=== PATIENT | female | born 1960 | race Caucasian/White ===

== ENCOUNTER 2018-09-03 06:49 | Observation (INO) | payer SELFPAY ==
[2018-09-03] VITALS (20 sets, daily range): BP systolic 133–178; BP diastolic 66–102; PULSE 56–74; RESP 10–20; TEMP 36.3–37.1; O2SAT 93–100; BMI 39.6
--- NOTE | 2018-09-03 | PATH_ITS ---
[facility] Accession Number: [id number] . 01 Material submitted: . gallbladder - GALLBLADDER . 02 Diagnosis: Gallbladder: Cholelithiasis with associated chronic cholecystitis. Benign reactive lymph node. I/09/07/2018 . 02 Electronically signed: . Bay Amador MD, Pathologist NPI- [id number] . 01 Gross description: . Received in formalin, labeled gallbladder, is an intact gallbladder (length-10.2 cm, diameter-3.5 cm) with patton-pink smooth shiny serosa and a patent cystic duct. A lymph node (1.5 x 0.7 x 0.5 cm) is identified. The lumen contains brown-green watery bile and multiple leary solid multifaceted calculi (10.0 x 3.5 x 2.0 cm in aggregate). The mucosa is leary smooth and flat. The wall is up to 0.1 cm thick. No nodules, masses or lesions are identified. Section code: (A1) cystic duct resection margins and two serial sections from the body; (A2) two longitudinal sections from the fundus; (A3) one bisected lymph node. ([id number]) /MRV . 02 Pathologist provided ICD-10: K80.64 . 02 CPT . 001982 Performed at: [address] [facility] [address] [place] [address], [place], [place] [id number] MD Rehan Mckeon MD Phone: [phone] Performed at: 02 [facility] [place] [address] [place], [place] [id number] MD Caroline Rod MD Phone: [phone]
--- NOTE | 2018-09-03 07:38 | DI.RAD.S_ITS ---
PROCEDURE: XR CHEST 1V INDICATIONS: chest pain TECHNIQUE: One view of the chest was acquired. COMPARISON: None. FINDINGS: Surgical changes and devices: None. Lungs and pleura: Lungs are clear. No pleural effusions or pneumothorax. Mediastinum: Mediastinal contours appear normal. Heart size is normal. Bones and chest wall: No suspicious bony lesions. Overlying soft tissues appear unremarkable. IMPRESSION: Normal for age, source of current chest pain symptoms is not seen. Dictated by: Lul Slater M.D. on 09/03/2018 at 8:13 Approved by: Lul Slater M.D. on 09/03/2018 at 8:13
--- NOTE | 2018-09-03 07:48 | DI.US.S_ITS ---
PROCEDURE: US ABDOMEN COMPLETE INDICATIONS: RIGHT UPPER QUADRANT PAIN TECHNIQUE: Real-time scanning was performed of the abdominal and retroperitoneal organs, with image documentation. COMPARISON: [facility], CR, XR CHEST 1V, 09/03/2018, 7:53. FINDINGS: Liver: Liver is normal in size and homogeneous in echotexture. Gallbladder: Numerous nonobstructing kidney stones are seen. The LLL is thickened to 3.3 mm. No specific pericholecystic fluid is seen. The sonographic Quinn sign is positive. Biliary ducts: Intrahepatic bile ducts are non-dilated. Extrahepatic bile duct caliber measures 5 mm. Normal is 6-7 mm or less in diameter, or 10 mm or less post-cholecystectomy. Pancreas: Not seen. Spleen: Spleen is normal in size and homogeneous in echotexture. Kidneys: Kidneys are normal in size and echotexture. Right kidney measures 11.3 cm long; left kidney measures 10.1 cm long. No hydronephrosis or nephrolithiasis. No solid masses. The renal cortex measures within normal limits for thickness. Aorta: Visualized aorta is normal in caliber at less than 3 cm. Iliacs: Proximal common iliac arteries are normal in caliber at less than 2.5 cm. IVC: Intrahepatic inferior vena cava is patent. Miscellaneous: No free abdominal fluid. This study is limited by body habitus. IMPRESSION: Abnormal gallbladder, with numerous gallstones, a thickened gallbladder wall, and a positive sonographic Quinn sign. These findings are worrisome for acute cholecystitis. Please correlate with physical examination findings, patient presentation, and laboratory values. There is no biliary dilatation. Dictated by: Stan Tobias M.D. on 09/03/2018 at 7:45 Approved by: Stan Tobias M.D. on 09/03/2018 at 7:47
--- NOTE | 2018-09-03 07:53 | ED_ITS ---
HPI - Chest Pain General Chief Complaint: Chest Pain Stated Complaint: nausea/chest and back pain x2 days Time Seen by Provider: 09/03/18 06:51 Source: patient Mode of arrival: ambulatory Limitations: no limitations History of Present Illness HPI narrative: Patient is a 57-year-old female who has not been feeling well for a few days. She is complaining today of right scapular pain, chest pain, vomiting. She said it actually started with some nonbloody diarrhea which has now resolved. She says the pain is in her right scapular region radiating around to her stomach or from stomach radiating around to her back she can't tell. She has thrown up 6 times yesterday 4 times this morning. No fever. She does have some mild chest pain as well no shortness of breath. her chest pain is nonradiating. Related Data Home Medications Medication Instructions Recorded Confirmed No Known Home Medications 12/03/17 09/03/18 Allergies Allergy/AdvReac Type Severity Reaction Status Date / Time No Known Drug Allergies Allergy Verified 09/03/18 13:27 Review of Systems Review of Systems ROS Unobtainable: All systems reviewed & are unremarkable except as noted in HPI and below Constitutional Denies chills, Denies fever(s), Denies lethargy and Denies weakness Eyes Denies change in vision, Denies eye discharge, Denies irritation and Denies loss of vision Cardiovascular Reports chest pain, Denies syncope, Denies rapid heart rate, Denies pedal edema, Denies irregular heart rhythm, Denies dyspnea and Denies dyspnea on exertion Respiratory Denies cough, Denies dyspnea, Denies dyspnea on exertion and Denies wheezing Gastrointestinal Gastrointestinal: Reports as per HPI, Reports diarrhea, Reports nausea and Reports vomiting Genitourinary Denies hematuria, Denies flank pain, Denies urinary incontinence and Denies urinary urgency Musculoskeletal Reports as per HPI and Reports back pain (Right scapular pain) Integumentary/Breasts Denies pruritus, Denies erythema, Denies rash and Denies wounds Neurologic Denies syncope, Denies loss of vision and Denies weakness Allergic/Immunologic Denies wheezing [facility] Medical History Chronic back pain (Chronic ~2011) Knee pain (Chronic ~2011) Chicken pox (Resolved ~1963) Family History Father Cancer Mother Cancer Brother Diabetes mellitus Drug abuse Brother No problems noted. Brother No problems noted. Brother No problems noted. Grandfather No problems noted. Grandfather No problems noted. Social History Smoking Status: Never smoker Family History Father Cancer Mother Cancer Brother Diabetes mellitus Drug abuse Brother No problems noted. Brother No problems noted. Brother No problems noted. Grandfather No problems noted. Grandfather No problems noted. Social History household members: spouse Smoking Status: Never smoker Exam Initial Vital Signs Initial Vital Signs: Vital Signs Temperature 98.4 F 09/03/18 07:06 Pulse Rate 67 09/03/18 07:06 Respiratory Rate 20 09/03/18 07:06 Blood Pressure 170/90 H 09/03/18 07:06 Pulse Oximetry 96 09/03/18 07:06 GENERAL: Overweight female appears in mild pain HEENT: Head atraumatic,EOMI, pupils reactive, face symmetric, moist mucous membranes CARDIOVASCULAR: Regular rate and rhythm without murmurs, rubs or gallops. RESPIRATORY: Breath sounds equal bilaterally, no wheezes rales or rhonchi. ABDOMEN: Soft, mild pain no right upper quadrant pain negative Quinn sign no lower abdominal pain normal bowel sounds : No CVA tenderness EXTREMITIES: Normal range of motion, no clubbing or edema. Neurovascularly intact NEUROLOGICAL: Alert and oriented x4.Normal gait and speech. SKIN: Warm, dry, no laceration, no petechiae, no rashes or lesions. Course Orders Ordered: ED Orders 09/03/18 06:52 EKG-12 Lead Stat 09/03/18 07:38 XR chest 1V Stat Complete Blood Count AUTO DIFF Stat 09/03/18 07:48 US abdomen complete Stat 09/03/18 08:35 Comprehensive Metabolic Panel Stat Lipase Stat Troponin & CK Cardiac Panel Stat 09/03/18 08:58 Partial Thromboplastin Time Stat Prothrombin Time INR Stat Hydrocodone Bitart/Acetaminophen ([place]hoff 5/325) 1 tab PO Q30MIN PRN PRN Reason: Mild or moderate pain Fentanyl (Sublimaze) 50 mcg IV Q5MIN PRN PRN Reason: Pain, Moderate (4-6) Hydromorphone HCl (Dilaudid) 0.5 mg IV Q5MIN PRN PRN Reason: Pain, Moderate (4-6) Lactated Ringer's (Lactated Ringers) 1,000 mls @ 100 mls/hr IV CONT [facility] Last Admin: 09/03/18 12:24 Dose: 100 mls/hr Lactated Ringer's (Lactated Ringers) 1,000 mls @ 42 mls/hr IV CONT [facility] Last Admin: 09/03/18 13:36 Dose: 42 mls/hr Metoclopramide HCl (Reglan) 10 mg IV NOW PRN PRN Reason: Nausea And Vomiting Ondansetron HCl (Zofran) 4 mg IV NOW PRN PRN Reason: Nausea And Vomiting Oxycodone/Acetaminophen (Percocet 5/325) 1 tab PO Q30MIN PRN PRN Reason: Mild or moderate pain Discontinued Medications Bupivacaine HCl (Sensorcaine 0.5% (Pf)) 30 ml INJ NOW ONE Stop: 09/03/18 15:05 Last Admin: 09/03/18 15:05 Dose: 30 ml Sodium Chloride (Normal Saline 0.9%) 1,000 mls @ 1,000 mls/hr IV BOLUS ONE Stop: 09/03/18 08:47 Last Infusion: 09/03/18 08:48 Dose: 0 mls/hr Admin: 09/03/18 07:54 Dose: 1,000 mls/hr Piperacillin/Tazobactam/Dextrose (Zosyn) 3.375 gm in 50 mls @ 100 mls/hr IV NOW ONE Stop: 09/03/18 09:48 Last Infusion: 09/03/18 10:02 Dose: 0 mls/hr Admin: 09/03/18 09:31 Dose: 100 mls/hr Cefotetan Disodium/Dextrose (Cefotan) 2 gm in 50 mls @ 100 mls/hr IV NOW ONE Stop: 09/03/18 12:13 Last Infusion: 09/03/18 14:50 Dose: 0 mls/hr Admin: 09/03/18 14:30 Dose: 100 mls/hr Infusion: 09/03/18 12:52 Dose: 100 mls/hr Admin: 09/03/18 12:22 Dose: 100 mls/hr Ketorolac Tromethamine (Toradol) 30 mg IV NOW ONE Stop: 09/03/18 07:49 Last Admin: 09/03/18 07:54 Dose: 30 mg Ondansetron HCl (Zofran) 4 mg IV NOW ONE Stop: 09/03/18 07:49 Last Admin: 09/03/18 07:54 Dose: 4 mg Pantoprazole Sodium (Protonix) 40 mg IV NOW ONE Stop: 09/03/18 07:49 Last Admin: 09/03/18 07:54 Dose: 40 mg Vital Signs - 8 hr 09/03/18 08:41 09/03/18 10:05 09/03/18 10:30 Temperature Pulse Rate 63 61 60 Respiratory Rate 20 17 14 Blood Pressure Blood Pressure [Left Arm] 164/77 H 142/66 H 158/70 H Pulse Oximetry 97 97 97 09/03/18 11:00 09/03/18 11:36 09/03/18 13:00 Temperature 98.7 F Pulse Rate 61 60 63 Respiratory Rate 16 20 Blood Pressure 178/102 H 154/84 H Blood Pressure [Left Arm] 147/75 H Pulse Oximetry 97 100 09/03/18 13:28 Temperature 98.3 F Pulse Rate 62 Respiratory Rate 15 Blood Pressure 154/82 H Blood Pressure [Left Arm] Pulse Oximetry 99 MDM - Chest Pain Lab Data Attestation: I reviewed the patient's lab results. Result diagrams: 09/03/18 07:38 09/03/18 08:35 Lab Results 09/03/18 09/03/18 09/03/18 Range/Units 07:38 08:35 08:58 WBC 12.5 H (4.5-11.0) X10^3/uL RBC 4.70 (4.0-5.2) X10^6/uL Hgb 14.3 (12.0-16.0) g/dL Hct 41.9 (36-46) % MCV 89.2 (80-100) fL MCH 30.4 (26-34) PG MCHC 34.1 (30-36) % RDW 13.0 (11.6-14.8) % Plt Count 309 (150-400) X10^3/uL Neut % (Auto) 86.8 H (50-75) % Lymph % (Auto) 8.3 L (25-40) % [place] % (Auto) 4.5 (3-14) % Eos % (Auto) 0.1 L (2-4) % Baso % (Auto) 0.3 (0-2) % Neut # (Auto) 78084 H (1521-8038) /uL Lymph # (Auto) 1000 L (2153-5277) /uL [place] # (Auto) 600 (0-900) /uL Eos # (Auto) 0 (0-450) /uL Baso # (Auto) 0 (0-100) /uL PT 12.0 (10.1-12.7) SECONDS INR 1.0 (0.9-1.3) APTT 33 (26.4-36.2) SECONDS Sodium 137 (137-145) mmol/L Potassium 4.1 (3.4-5.1) mmol/L Chloride 104 (98-107) mmol/L Carbon Dioxide 24 (22-32) mmol/L BUN 9 (7-17) mg/dL Creatinine 0.70 (0.52-1.04) mg/dL Estimated GFR > 60.0 (>60) mL/min BUN/Creatinine Ratio 12.9 (6-22) Glucose 104 H (70-100) mg/dL Calcium 8.9 (8.4-10.2) mg/dL Total Bilirubin 0.6 (0.2-1.3) mg/dL AST 161 H (14-36) IU/L ALT 212 H (9-52) IU/L Alkaline Phosphatase 78 (38-126) U/L Total Creatine Kinase 65 (30-135) U/L CK-MB (CK-2) TNP CK-MB (CK-2) Rel Index TNP Troponin I < 0.012 (0.01-0.034) ng/mL Total Protein 7.7 (6.3-8.2) g/dL Albumin 4.3 (3.5-5.0) g/dL Globulin 3.4 (1.7-4.1) g/dL Albumin/Globulin Ratio 1.3 (1.0-2.8) Lipase 152 (23-300) U/L Imaging Data US - abdomen: Radiologist's impression: PROCEDURE: US ABDOMEN COMPLETE INDICATIONS: RIGHT UPPER QUADRANT PAIN TECHNIQUE: Real-time scanning was performed of the abdominal and retroperitoneal organs, with image documentation. COMPARISON: [facility], CR, XR CHEST 1V, 09/03/2018, 7:53. FINDINGS: Liver: Liver is normal in size and homogeneous in echotexture. Gallbladder: Numerous nonobstructing kidney stones are seen. The LLL is thickened to 3.3 mm. No specific pericholecystic fluid is seen. The sonographic Quinn sign is positive. Biliary ducts: Intrahepatic bile ducts are non-dilated. Extrahepatic bile duct caliber measures 5 mm. Normal is 6-7 mm or less in diameter, or 10 mm or less post-cholecystectomy. Pancreas: Not seen. Spleen: Spleen is normal in size and homogeneous in echotexture. Kidneys: Kidneys are normal in size and echotexture. Right kidney measures 11.3 cm long; left kidney measures 10.1 cm long. No hydronephrosis or nephrolithiasis. No solid masses. The renal cortex measures within normal limits for thickness. Aorta: Visualized aorta is normal in caliber at less than 3 cm. Iliacs: Proximal common iliac arteries are normal in caliber at less than 2.5 cm. IVC: Intrahepatic inferior vena cava is patent. Miscellaneous: No free abdominal fluid. This study is limited by body habitus. IMPRESSION: Abnormal gallbladder, with numerous gallstones, a thickened gallbladder wall, and a positive sonographic Quinn sign. These findings are worrisome for acute cholecystitis. Please correlate with physical examination findings, patient presentation, and laboratory values. There is no biliary dilatation. Dictated by: Stan Tobias M.D. on 09/03/2018 at 7:45 MDM Narrative Medical decision making narrative: DR. MCDERMOTT NOTIFIED OF PATIENT AND WILL BE IN TO ED TO SEE AND EVALUATE THE PATIENT LATER. Patient did get 1 dose of Zosyn prophylactically. Does not appear septic. Patient admitted for acute cholecystitis with cholelithiasis Discharge Plan Departure Patient Disposition: Admitted As Inpatient Clinical Impression: Cholecystitis Cholelithiasis Qualifiers: Cholelithiasis location: gallbladder Cholecystitis presence: with cholecystitis Cholecystitis acuity: acute Biliary obstruction: without biliary obstruction Qualified Code(s): K80.00 - Calculus of gallbladder with acute cholecystitis without obstruction Discharge Date/Time: 09/03/18 11:28 Interventions: ED Discharge Assessment Last Done: 09/03/18 11:26 Admit Date/Time: 09/03/18 10:14 Admit Provider: Bernard Mcdermott
[2018-09-03] MEDS: KETOROLAC 60 MG/2 ML VIAL 30 MG IV (07:54)
[2018-09-03] MEDS: ONDANSETRON 4 MG/2 ML INJ IV ×3 (07:54→16:57)
[2018-09-03] MEDS: PANTOPRAZOLE 40 MG VIAL IV (07:54)
[2018-09-03] MEDS: SODIUM CHLORIDE 0.9% 1,000 ML 1000 ML IV (07:54)
--- NOTE | 2018-09-03 08:16 | PC.NURSE ---
Lab is unable to draw pts blood. Will send another tech up
[2018-09-03 08:44] LABS: Add Manual Diff / Slide Review NO; Basophils Absolute Auto 0 /uL (0-100); Basophils Percent Auto 0.3 % (0-2); Eosinophils Absolute Auto 0 /uL (0-450); Eosinophils Percent Auto 0.1 % (2-4); Hematocrit 41.9 % (36-46); Hemoglobin 14.3 g/dL (12.0-16.0); Lymphocytes Absolute Auto 1000 /uL (1100-4500); Lymphocytes Percent Auto 8.3 % (25-40); Mean Corpuscular HGB Conc 34.1 % (30-36); Mean Corpuscular Hemoglobin 30.4 PG (26-34); Mean Corpuscular Volume 89.2 fL (80-100); Monocytes Absolute Auto 600 /uL (0-900); Monocytes Percent Auto 4.5 % (3-14); Neutrophils Absolute Auto 10900 /uL (1500-7000); Neutrophils Percent Auto 86.8 % (50-75); Platelet Count 309 X10^3/uL (150-400); White Blood Cell Count 12.5 X10^3/uL (4.5-11.0)
[2018-09-03 09:07] LABS: Alanine Aminotransferase 212 IU/L (9-52); Albumin 4.3 g/dL (3.5-5.0); Albumin Globulin Ratio 1.3 (1.0-2.8); Alkaline Phosphatase 78 U/L (38-126); Aspartate Aminotransferase 161 IU/L (14-36); BUN Creatinine Ratio 12.9 (6-22); Bilirubin Total 0.6 mg/dL (0.2-1.3); Blood Urea Nitrogen 9 mg/dL (7-17); Calcium 8.9 mg/dL (8.4-10.2); Carbon Dioxide 24 mmol/L (22-32); Chloride 104 mmol/L (98-107); Creatine Kinase 65 U/L (30-135); Estimated Glomerular Filt Rate > 60.0 mL/min (>60); Globulin 3.4 g/dL (1.7-4.1); Glucose 104 mg/dL (70-100); HEMOLYSIS 31 (0-50); Lipase 152 U/L (23-300); Potassium 4.1 mmol/L (3.4-5.1); Sodium 137 mmol/L (137-145); Total Protein 7.7 g/dL (6.3-8.2)
[2018-09-03 09:17] LABS: PTT Partial Thromboplastin Tim 33 SECONDS (26.4-36.2)
[2018-09-03 09:19] LABS: Troponin I < 0.012 ng/mL (0.01-0.034)
[2018-09-03] MEDS: PIPERACILLIN-TAZO 3.375 GM/50 ML FROZ.PIGGY IV (09:31)
--- NOTE | 2018-09-03 11:40 | P.HP_ITS ---
History of Present Illness Date Patient Seen: 09/03/18 Time Patient Seen: 10:37 Chief complaint: nausea/chest and back pain x2 days Narrative: The patient is a woman who had sudden onset of right shoulder pain radiating to right upper abdomen and side about a day and a half ago. It has been persistent. It is quite intense and she came into the emergency room. It was accompanied by nausea and vomiting. She has never had pain like this before. She denies symptoms of nausea and vomiting after eating and no fatty food intolerance. The patient last ate last night at 10:00 p.m.. Nothing by mouth since. No prior abdominal operations. She does not regularly see a doctor. Patient History Medical History Chronic back pain (Chronic ~2011) Knee pain (Chronic ~2011) Chicken pox (Resolved ~1963) Family History Father Cancer Mother Cancer Brother Diabetes mellitus Drug abuse Brother No problems noted. Brother No problems noted. Brother No problems noted. Grandfather No problems noted. Grandfather No problems noted. Social History Smoking Status: Never smoker Family & Social History Family History Father Cancer Mother Cancer Brother Diabetes mellitus Drug abuse Brother No problems noted. Brother No problems noted. Brother No problems noted. Grandfather No problems noted. Grandfather No problems noted. Safety & Behavioral: Feels Safe in Current Yes Environment Been Physically Hurt or No Threatened By a Person Tobacco & Substance use: Smoking Status Never smoker alcohol intake frequency 0-2 drinks per day Substance Use Type does not use Meds Home Medications Medication Instructions Recorded Confirmed Type No Known Home Medications 12/03/17 09/03/18 History Allergies Allergy/AdvReac Type Severity Reaction Status Date / Time No Known Drug Allergies Allergy Verified 09/03/18 07:38 Review of Systems Review of Systems Patient denies double vision pain arise earaches or sore throat. No cough cold or asthma. No heart problems or murmurs. No chest pain. No black or bloody bowel movements. No anxiety or depression. No seizures or blackouts. No blood in her urine or kidney stones. No problems with the pancreas or thyroid she is aware of. No unusual bruising or bleeding. Exam Vital Signs (past 8 hours): - 09/03/18 07:06 09/03/18 08:41 09/03/18 10:05 Temperature 98.4 F Pulse Rate 67 63 61 Respiratory Rate 20 20 17 Blood Pressure 170/90 H Blood Pressure [Left Arm] 164/77 H 142/66 H Pulse Oximetry 96 97 97 09/03/18 10:30 09/03/18 11:00 Temperature Pulse Rate 60 61 Respiratory Rate 14 16 Blood Pressure Blood Pressure [Left Arm] 158/70 H 147/75 H Pulse Oximetry 97 97 Oxygen Delivery Method Room Air Narrative Exam Narrative: Pleasant obese woman in no apparent distress. BMI is 40. Her eyes are nonicteric. Pupils equal round reactive to light. Conjunctivae are pink. Ears without lesion. Oral mucosa is dry no open lesions. Neck is supple there are no nodes neck supraclavicular areas. Lungs are clear to auscultation no rales or rhonchi. Equal percussion. Heart regular rate and rhythm without murmur gallop no bruit in the neck. Her abdomen is protuberant soft she is not tender at this time but received pain medication. No obvious hernias or masses. Liver and spleen not apparently enlarged. She is alert and oriented x3. Speech rate and content are appropriate affect is appropriate. Objective Labs Result Diagrams: 09/03/18 07:38 09/03/18 08:35 Labs: Laboratory Results - last 24 hr 09/03/18 09/03/18 09/03/18 07:38 08:35 08:58 WBC 12.5 H RBC 4.70 Hgb 14.3 Hct 41.9 MCV 89.2 MCH 30.4 MCHC 34.1 RDW 13.0 Plt Count 309 Neut % (Auto) 86.8 H Lymph % (Auto) 8.3 L [place] % (Auto) 4.5 Eos % (Auto) 0.1 L Baso % (Auto) 0.3 Neut # (Auto) 26176 H Lymph # (Auto) 1000 L [place] # (Auto) 600 Eos # (Auto) 0 Baso # (Auto) 0 PT 12.0 INR 1.0 APTT 33 Sodium 137 Potassium 4.1 Chloride 104 Carbon Dioxide 24 BUN 9 Creatinine 0.70 Estimated GFR > 60.0 BUN/Creatinine Ratio 12.9 Glucose 104 H Calcium 8.9 Total Bilirubin 0.6 AST 161 H ALT 212 H Alkaline Phosphatase 78 Total Creatine Kinase 65 CK-MB (CK-2) TNP CK-MB (CK-2) Rel Index TNP Troponin I < 0.012 Total Protein 7.7 Albumin 4.3 Globulin 3.4 Albumin/Globulin Ratio 1.3 Lipase 152 Assessment & Plan Assessment & Plan narrative: Patient with severe shoulder pain and ultrasound showing gallstones and a thickened gallbladder wall. No ductal dilatation. Her liver function tests are elevated but her bilirubin is normal. Will proceed to laparoscopic cholecystectomy. Possible cholangiogram discussed. Possible postop ERCP discussed or an open procedure discussed. I discussed risks of bleeding, infection, hernia, injury to internal organs or ducts that make result in a major operation, bile leakage all discussed with her. She appears to understand and wishes to proceed
--- NOTE | 2018-09-03 11:45 | PM.PREOP ---
Pre-operative Note Interval Note History & Physical reviewed/Exam performed by Physician: Yes Changes to H&P: No ASA Class (for procedural sedation): II
[2018-09-03] MEDS: CEFOTETAN 2 GM/50 ML PIGGYBACK IV ×2 (12:22→14:30)
[2018-09-03] MEDS: LACTATED RINGERS 1,000 ML 100 ML IV (12:24)
[2018-09-03] MEDS: LACTATED RINGERS 1,000 ML 42 ML IV ×2 (13:36→16:27)
--- NOTE | 2018-09-03 14:08 | PC.ADMIT ---
[email or web address] Admission Note: The patient,Mayda Wynne,57 y/o, was given written information regarding hospital policies, unit procedures and contact persons. Patient's smoking status: Never smoker. Vital Signs - 8 hr 09/03/18 07:06 09/03/18 08:41 09/03/18 10:05 Temperature 98.4 F Pulse Rate 67 63 61 Respiratory Rate 20 20 17 Blood Pressure 170/90 H Blood Pressure [Left Arm] 164/77 H 142/66 H Pulse Oximetry 96 97 97 09/03/18 10:30 09/03/18 11:00 09/03/18 11:36 Temperature 98.7 F Pulse Rate 60 61 60 Respiratory Rate 14 16 20 Blood Pressure 178/102 H Blood Pressure [Left Arm] 158/70 H 147/75 H Pulse Oximetry 97 97 100 09/03/18 13:28 Temperature 98.3 F Pulse Rate 62 Respiratory Rate 15 Blood Pressure 154/82 H Blood Pressure [Left Arm] Pulse Oximetry 99 PATIENT WAS HYPERTENSIVE ON ADMIT, RECHECKED W/ IMPROVEMENT TO 154/84 HR 62. DENIED NAUSEA OR ABD PAIN. STATES ABD PAIN RESOLVED AFTER ER MEDS. REPORTED STILL HAD MILD PAIN BETWEEN SHOULDER BLADES. HAD BEEN NPO SINCE LAST NIGHT. SPOUSE AT BEDSIDE. ADMISSION ASSESSMENT COMPLETED. LEFT FOR OR AT 1320.
--- NOTE | 2018-09-03 14:54 | SUR.OPER ---
Supine on padded OR bed, head on pillow, safety belt at thigh, left arm padded and tucked at side. Right arm secured on padded arm oard <90 degrees abduction. Legs uncrossed. Padded footboard in place. Tape over blanket to secure lower legs.
[2018-09-03] MEDS: BUPIVACAINE 0.5% (PF) VIAL 30 ML INJ (15:05)
[2018-09-03] MEDS: HYDROMORPHONE 2 MG INJ 0.5 MG IV ×2 (16:40→16:49)
[2018-09-03] MEDS: METOCLOPRAMIDE 10 MG/2 ML INJ IV (16:47)
--- NOTE | 2018-09-03 17:03 | PM.OP.1 ---
Operative Date/Time/Diagnoses Date of procedure: 09/03/18 Time of procedure: 17:03 Pre-op diagnosis: Cholelithiasis acute cholecystitis acute Post-op diagnosis: same Procedure & Clinicians Procedure: Laparoscopic cholecystectomy Same procedure as scheduled: Yes Indications: Symptomatic gallbladder disease. Symptoms Came on acutely. Surgeon: Bernard Rodrigez Click Yes if Unassisted: Yes Anesthesia Type: General Operative Notes Findings: Gallbladder full of stones. Closure Type: primary Specimen(s): other (Gallbladder) Prosthetic devices, grafts, tissues, transplants, or devices: None Estimated Blood Loss (mL): 45 Blood products transfused: none Procedure in detail: The patient is placed supine on the operating table underwent general endotracheal anesthesia. She was prepped and draped in the usual fashion. Curvilinear incision was made beneath the umbilicus and carried down under direct vision in the peritoneal cavity. Stay sutures of 0 but Vicryl were placed in the fascia. a 12 mm port was inserted in the abdomen was insufflated. The patient was reposition. Three additional ports were placed under the right costal margin. All of these were 5 mm ports. The gallbladder is identified as a thickened glistening white structure. It was grasped and elevated. there was omentum adherent to its surface that appeared to be fairly for acute. This was taken down with cautery and blunt dissection. the end of the gallbladder was identified and dissection begun here. I kept my dissection very close to the gallbladder because of the somewhat altered appearing anatomy. Have an artery was from surrounding structures as was the duct. clips were placed across the artery and it was divided. I then done dissected out the ductal system applied 4 clips to it on examination it did not appear that the clips were all the way across the duct. therefore I tied the duct with an 0 Vicryl tie and then divided the duct leaving 3 clips +the tie in the patient. I also added additional clip clips that went all the way across the duct securing the tie in place. when I divided the duct encountered a an artery branch which had clips applied to it to bring it under control. there was a posterior artery encountered as I dissected the gallbladder out the bed of the liver. Two clips were placed on this to bring it under control. the gallbladder was ultimately dissected from its bed in the liver and detached. It was placed in a bag and removed without difficulty through the umbilical port. the right upper quadrant irrigated and suctioned free of fluid. There was no ongoing bleeding. the liver bed looked fine. I removed all the ports and tied the stay sutures at the umbilicus. I added a 2 0 PDS between those 0 Vicryl stay sutures to close the defect between the 2. The wounds were irrigated. Four Vicryl was used to close the skin in all locations. There was a small amount of oozing from the umbilical skin edge and I chose to simply control this with pressure. the patient was awakened and extubated and taken recovery area in good condition. There were no apparent complications Complications: none Condition: stable Disposition: PACU
--- NOTE | 2018-09-03 17:03 | SUR.PHASEI ---
Report called to [place]
--- NOTE | 2018-09-03 17:29 | SUR.PHASEI ---
Pt transferred to the floor. VS stable. Report to [place]. Drsgs cdi. Lower abd mildly pink/orange, cold to the touch. Ice pack moved to upper abd. IV saline locked.
[2018-09-03] MEDS: LACTATED RINGERS 1,000 ML 125 ML IV (17:39)
[2018-09-03] MEDS: HYDROCODONE/ACET 5/325 TABLET 2 TAB PO (22:32)
[2018-09-04 00:24] VITALS: BP 187/77; PULSE 64; RESP 18; TEMP 36.6; O2SAT 98
[2018-09-04] MEDS: LACTATED RINGERS 1,000 ML 125 ML IV (01:54)
--- NOTE | 2018-09-04 02:12 | PC.NURSE ---
Paged Dr. Rodrgiez to advised the incision above the umbillicus is bleeding, heavily enough to soak two abdominal pads. He requested a tight gauze and tape only dressing.
[2018-09-04 04:07] VITALS: BP 150/83; PULSE 62; RESP 18; TEMP 37; O2SAT 96
[2018-09-04 07:12] VITALS: BP 145/74; PULSE 60; RESP 16; TEMP 36.5; O2SAT 98
[2018-09-04] MEDS: HYDROCODONE/ACET 5/325 TABLET 2 TAB PO ×2 (07:25→13:33)
[2018-09-04 11:00] VITALS: BP 139/75; PULSE 60; RESP 16; TEMP 37; O2SAT 99
[2018-09-04] MEDS: LIDOCAINE 1% W/EPI INJ 4 ML INJ (13:34)
--- NOTE | 2018-09-04 14:06 | PC.NURSE ---
Dr. Rodrigez in to suture umbilical lap incision. total of 4 dressing changes noc and day shift. 3 sutures placed and pressure dressing applied. pt resting in bed. at bedside.
--- NOTE | 2018-09-04 15:38 | PM.DS.1 ---
History of Present Illness Chief complaint: nausea/chest and back pain x2 days Narrative: The patient is a woman who had sudden onset of right shoulder pain radiating to right upper abdomen and side about a day and a half ago. It has been persistent. It is quite intense and she came into the emergency room. It was accompanied by nausea and vomiting. She has never had pain like this before. She denies symptoms of nausea and vomiting after eating and no fatty food intolerance. The patient last ate last night at 10:00 p.m.. Nothing by mouth since. No prior abdominal operations. She does not regularly see a doctor. Discharge Providers Date of admission: 09/03/18 10:14 Discharge Date: 09/04/18 Primary care physician: JUAN Virgen Consults: 09/03/18 17:25 Consult to Discharge Planning Routine Comment: Discharge provider: Bernard Rodrigez MD Summary Discharge Diagnosis: Acute cholecystitis with cholelithiasis. Postoperative bleeding from umbilical incision requiring suturing. Morbid obesity. Hospital Course: Patient underwent a laparoscopic cholecystectomy. Postoperatively she did quite well from a GI tract point of view. she had oozing however from her umbilical incision at which would not stop with multiple pressure dressings. Therefore under local anesthetic as the wound was sutured and this brought the bleeding under control. she was discharged on a general diet to follow up in the office. Status at Discharge Cognitive/behavioral status at discharge: oriented Functional status at discharge: independent ambulation Overall status at discharge: patient is progressing back to baseline Time Spent with Patient Less than 30 minutes Exam Vital Signs (past 8 hours): - 09/04/18 11:00 Temperature 98.6 F Pulse Rate 60 Respiratory Rate 16 Blood Pressure 139/75 Pulse Oximetry 99 Oxygen Delivery Method Room Air Oxygen Flow Rate 0 Objective Labs Result Diagrams: 09/03/18 07:38 09/03/18 08:35 Discharge Plan Discharge Plan Discharge Problem: Cholecystitis, Cholelithiasis Patient Disposition: Home Discharge comment: Your operation went well. Discharge Med Rec/Prescriptions Prescriptions: New hydrocodone-acetaminophen [[place]] 5-325 mg tablet See Rx Instructions .ROUTE .COMPLEX PRN (Reason: painful procedure) Qty: 20 RF: 0 Follow up/Referrals: Bernard Rodrigez MD [Physician] - 09/15/18 1:30 pm Elysia Mercer ARNP [Primary Care Provider] - Provider Discharge Instructions Diet: Diet as Tolerated Activity: Do not lift over 10 lb or strain or push heavy objects for 4 weeks. You may walk. No tub or bath for 2 weeks. Skin/Wound/Dressing Care Report to your healthcare provider any signs of infection, such as:: increased pain, unusual drainage and unusual redness Dressing: You may remove all of the dressings on her abdomen shower tomorrow. Discharge Data Primary Care Provider: Elysia Mercer Attending Provider: Bernard Rodrigez Admit Date/Time: 09/03/18 10:14 Quality VTE Deep Vein Thrombosis/Pulmonary Embolism Present on Admission: No
--- NOTE | 2018-09-05 08:36 | CM.IDA ---
Late Entry Reviewed chart Friday and discussed pt in multidisciplinary rounds Friday morning. Pt DC home w/spouse yesterday, POD#1 from a lap andrew. Pt was cleared and DC by Dr Rodrigez yesterday, back to her indp baseline and scheduled for close outpt f/u. No barriers to safe return home w/family. JW
== END 2018-09-04 16:19 | disposition home or self-care (01) ==
LOC: ED 09:20 → AC 11:17
PROVIDERS: Admitting Provider Specialist; Emergency Provider Emergency Medicine; PCP Internal Medicine; Visit Provider Specialist
PROC: 0FT44ZZ Resection of Gallbladder, Percutaneous Endoscopic Approach (ICD-10-PCS; CPT 47562; principal; 2018-09-03 14:45)
DX: K80.00 Calculus of gallbladder with acute cholecystitis without obstruction (principal); R07.9 Chest pain, unspecified; K66.0 Peritoneal adhesions (postprocedural) (postinfection)
CPT/HCPCS: 47562; 36415; 36591; 71045; 76700; 80053; 82550; 83690; 84484; 85025; 85610; 85730; 93005; 93010; 96361; 96365; 96367; 96372; 96375; 99220; 99284; 99285; G0378; C9113; J0330; J1100; J1170; J1885; J2405; J2543; J2704; J2765; J3010